=== PATIENT | female | born 1965 | race Caucasian/White ===

== ENCOUNTER → 2017-02-09 | Outpatient (CLI) | payer OTHER ==
--- NOTE | 2017-02-11 11:46 | MM ---
Reason for exam: screening (asymptomatic). Last mammogram was performed 1 year and 1 month ago. History: Patient is postmenopausal. Benign US RT VAD breast biopsy of the right breast, September 07, 2012. Benign left mammotome panel of the left breast, April 30, 2009. Benign US left guided VAD of the left breast, April 30, 2009. Took hormonal contraceptives for 10 years beginning at age 17. Took estrogen for 6 years beginning at age 40. Physical Findings: A clinical breast exam by your physician is recommended on an annual basis and results should be correlated with mammographic findings. MG 3D Screening Mammo W/Cad Bilateral CC and MLO view(s) were taken. Prior study comparison: January 06, 2016, bilateral MG 3d screening mammo w/cad. November 12, 2014, bilateral MG screening mammo w CAD. November 07, 2013, bilateral digital screening mammo w/CAD. The breast tissue is heterogeneously dense. This may lower the sensitivity of mammography. Previous mammotome biopsy within the right and left breast times 2. New small group of microcalcifications on the right 10 o'clock position middle depth. ASSESSMENT: Incomplete: need additional imaging evaluation, BI-RAD 0 RECOMMENDATION: Special view mammogram of the right breast. [facility] will attempt to contact patient to return for supplemental views.
== END | disposition home or self-care (01) ==
LOC: RADMAMWWP 07:35
PROVIDERS: ATTEND Internal Medicine
DX: Z12.31 Encounter for screening mammogram for malignant neoplasm of breast (principal)
CPT/HCPCS: 77063; G0202

== ENCOUNTER → 2017-02-15 | Outpatient (CLI) | payer OTHER ==
--- NOTE | 2017-02-15 08:29 | MM ---
Reason for exam: additional evaluation requested from abnormal screening. Last mammogram was performed less than 1 month ago. History: Patient is postmenopausal. Benign US RT VAD breast biopsy of the right breast, September 07, 2012. Benign left mammotome panel of the left breast, April 30, 2009. Benign US left guided VAD of the left breast, April 30, 2009. Took hormonal contraceptives for 10 years beginning at age 17. Took estrogen for 6 years beginning at age 40. Physical Findings: Nurse did not find any significant physical abnormalities on exam. MG 3D Work Up W/Cad RT ML with magnification, CC with magnification, and ML view(s) were taken of the right breast. Prior study comparison: February 09, 2017, bilateral MG 3d screening mammo w/cad. January 06, 2016, bilateral MG 3d screening mammo w/cad. November 12, 2014, bilateral MG screening mammo w CAD. The breast tissue is heterogeneously dense. This may lower the sensitivity of mammography. Very small group of microcalcifications upper outer quadrant middle depth appears to layer on the lateral view raising possibility of benign milk of calcium, These can be reassessed in 6 months. These results were verbally communicated with the patient and result sheet given to the patient on 02/15/17. ASSESSMENT: Probably benign, BI-RAD 3 RECOMMENDATION: Follow-up diagnostic mammogram of the right breast in 6 months.
== END ==
LOC: RADMAMWWP 07:30
PROVIDERS: ATTEND Internal Medicine
DX: R92.8 Other abnormal and inconclusive findings on diagnostic imaging of breast (principal)
CPT/HCPCS: G0206; G0279

== ENCOUNTER → 2018-08-19 | Outpatient (CLI) | payer OTHER ==
--- NOTE | 2018-08-23 09:13 | MM ---
Reason for exam: screening (asymptomatic). Last mammogram was performed 10 months ago. History: Patient is postmenopausal. Benign US RT VAD breast biopsy of the right breast, September 07, 2012. Benign left mammotome panel of the left breast, April 30, 2009. Benign US left guided VAD of the left breast, April 30, 2009. Took hormonal contraceptives for 10 years beginning at age 17. Took estrogen for 6 years beginning at age 40. Physical Findings: A clinical breast exam by your physician is recommended on an annual basis and results should be correlated with mammographic findings. MG 3D Screening Mammo W/Cad Bilateral CC and MLO view(s) were taken. Prior study comparison: October 18, 2017, right breast MG 3d diag mammo w/cad RT. February 15, 2017, right breast MG 3d work up w/cad RT. The breast tissue is heterogeneously dense. This may lower the sensitivity of mammography. Previous mammotome biopsy in the right and left breast. There is chronic nodularity in the left upper outer quadrant, better appreciated on 3D. No significant changes when compared with prior studies. ASSESSMENT: Negative, BI-RAD 1 RECOMMENDATION: Routine screening mammogram of both breasts in 1 year.
== END | disposition home or self-care (01) ==
LOC: RADMAMWWP 15:51
PROVIDERS: ATTEND Internal Medicine
DX: Z12.31 Encounter for screening mammogram for malignant neoplasm of breast (principal)
CPT/HCPCS: 77063; 77067

== ENCOUNTER → 2021-12-15 | Outpatient (CLI) | payer BC ==
--- NOTE | 2021-12-16 11:01 | MM ---
Reason for exam: screening (asymptomatic). Last mammogram was performed 3 years and 4 months ago. History: Patient is postmenopausal. Benign US RT VAD breast biopsy of the right breast, September 07, 2012. Benign left mammotome panel of the left breast, April 30, 2009. Benign US left guided VAD of the left breast, April 30, 2009. Took hormonal contraceptives for 10 years beginning at age 17. Took estrogen for 6 years beginning at age 40. Physical Findings: A clinical breast exam by your physician is recommended on an annual basis and results should be correlated with mammographic findings. MG 3D Screening Mammo W/Cad Bilateral CC, MLO, and XCCL view(s) were taken. Prior study comparison: August 19, 2018, bilateral MG 3d screening mammo w/cad. October 18, 2017, right breast MG 3d diag mammo w/cad RT. The breast tissue is heterogeneously dense. This may lower the sensitivity of mammography. No significant changes when compared with prior studies. ASSESSMENT: Benign, BI-RAD 2 RECOMMENDATION: Routine screening mammogram of both breasts in 1 year.
== END | disposition home or self-care (01) ==
LOC: RADMAMWWP 14:36
PROVIDERS: ATTEND Family Medicine
DX: Z12.31 Encounter for screening mammogram for malignant neoplasm of breast (principal); Z78.0 Asymptomatic menopausal state
CPT/HCPCS: 77063; 77067

== ENCOUNTER 2022-09-16 10:38 | Day surgery (SDC) | payer OTHER ==
[~2022-09-16 10:38] MED LIST: LACTATED RINGERS 1,000 ML IV SCH; LIDOCAINE 1% (10MG/ML) FOR IV START INTRADERMA PRN; ONDANSETRON 4 MG/2 ML VIAL IVP PRN
[2022-09-16 12:20] VITALS: TEMP 98.8
[2022-09-16] MEDS ORDERED: PROPOFOL 10 MG/ML 20 ML VIAL IV ONE (12:59)
[2022-09-16] MEDS ORDERED: LIDOCAINE 2% INJ 20 MG/ML (2 ML VIAL) ONE (12:59)
--- NOTE | 2022-09-16 13:15 | P.PCN ---
Date of Procedure: 09/16/22 Procedure(s) Performed: BRIEF HISTORY: Patient is a 57-year-old pleasant female scheduled for an elective colonoscopy as a part of screening for colon rectal neoplasia. PROCEDURE PERFORMED: Colonoscopy. PREOPERATIVE DIAGNOSIS: Screening for colon cancer. IV sedation per Anesthesia. PROCEDURE: After informed consent was obtained, the patient, was brought into the endoscopy unit. IV sedation was administered by Anesthesia under continuous monitoring. Digital rectal examination was normal. Initially the Olympus CF-160 flexible video colonoscope was then inserted in the rectum, gradually advanced into the cecum without any difficulty. Careful examination was performed as the scope was gradually being withdrawn. Ileocecal valve and the appendiceal orifice were visualized and appeared normal. Prep was good.. Mucosa of the cecum, ascending colon, transverse colon, descending colon, sigmoid colon, and rectum appeared normal. Retroflexion was performed in the rectum and no lesions were seen. The patient tolerated the procedure well. IMPRESSION: Normal-appearing colon from rectum to cecum no evidence of colorectal neoplasia . RECOMMENDATIONS: Findings of this examination were discussed with the patient as well as her family. She was advised to have a repeat screening colonoscopy in 10 years.
[2022-09-16 13:20] VITALS: RESP 16
[2022-09-16 13:38] VITALS: BP 128/84; PULSE 61
== END 2022-09-16 13:56 | disposition home or self-care (01) ==
LOC: ORWHC2ENDO 10:38
PROVIDERS: ATTEND Internal Medicine Gastroenterology
DX: Z12.11 Encounter for screening for malignant neoplasm of colon (principal); I10 Essential (primary) hypertension; E78.5 Hyperlipidemia, unspecified; E03.9 Hypothyroidism, unspecified; Z79.890 Hormone replacement therapy; Z90.710 Acquired absence of both cervix and uterus; Z90.49 Acquired absence of other specified parts of digestive tract
CPT/HCPCS: 45378; J2704; J2001

== ENCOUNTER → 2023-03-17 | Outpatient (CLI) | payer BC ==
--- NOTE | 2023-03-18 08:30 | MM ---
Reason for Exam: Screening (asymptomatic). Last mammogram was performed 1 year(s) and 3 month(s) ago. Patient History: Menarche at age 13. First Full-Term at age 28. Left ovary removed at age 43. Right ovary removed at age 43. Hysterectomy at age 43. Postmenopausal. Patient has history of breast feeding. Estrogen, starting at age 40 for 6 years. Hormonal Contraceptives for 10 years from age 17 until age 27. 09/07/2012, Benign Core Biopsy on the right side. 04/30/2009, Benign Core Biopsy on the left side. 04/30/2009, Benign Core Biopsy on the left side. Risk Values: Lina 5 year model risk: 2.1%. NCI Lifetime model risk: 12.8%. Prior Study Comparison: 01/06/2016 Bilateral Screening Mammogram, [facility]. 02/09/2017 Bilateral Screening Mammogram, [facility]. 02/15/2017 Right Diagnostic Mammogram, [facility]. 10/18/2017 Right Diagnostic Mammogram, [facility]. 08/19/2018 Bilateral Screening Mammogram, [facility]. 12/15/2021 Bilateral Screening Mammogram, [facility]. Tissue Density: The breast tissue is heterogeneously dense. This may lower the sensitivity of mammography. Findings: Analyzed By CAD. Bilateral biopsy clips are redemonstrated. There are scattered and loosely grouped tiny benign-appearing round calcifications throughout the bilateral breasts redemonstrated. Benign-appearing bilateral axillary lymph nodes are again seen. Stable small circumscribed round masses in the left breast on background dense tissue. There is no suspicious new group of microcalcifications or new suspicious mass in either breast. Overall Assessment: Benign, BI-RAD 2 Management: Screening Mammogram of both breasts in 1 year. Some advise bilateral breast ultrasound surveillance in patients with background dense tissue. Patient should continue monthly self-breast exams. A clinical breast exam by your physician is recommended on an annual basis. This exam should not preclude additional follow-up of suspicious palpable abnormalities. Note on Lina scores and lifetime risk: 1. A Lina score greater than 3% is considered moderate risk. If this is the case, consider specialist referral to assess eligibility for a risk reducing agent. 2. If overall lifetime risk for the development of breast cancer is 20% or higher, the patient may qualify for future screening with alternating mammogram and breast MRI. Electronically signed and approved by: Geoff Doe M.D.
== END | disposition home or self-care (01) ==
LOC: RADMAMWWP 06:46
PROVIDERS: ATTEND Family Medicine
DX: Z12.31 Encounter for screening mammogram for malignant neoplasm of breast (principal); Z78.0 Asymptomatic menopausal state
CPT/HCPCS: 77063; 77067

== ENCOUNTER → 2025-01-11 | Outpatient (CLI) | payer BC ==
--- NOTE | 2025-01-12 07:54 | MM ---
Reason for Exam: Screening (asymptomatic). Last mammogram was performed 1 year(s) and 10 month(s) ago. Patient History: Menarche at age 13. First Full-Term at age 28. Left ovary removed at age 43. Right ovary removed at age 43. Hysterectomy at age 43. Postmenopausal. Patient has history of breast feeding. Estrogen, starting at age 40 for 6 years. Hormonal Contraceptives for 10 years from age 17 until age 27. 09/07/2012, Benign Core Biopsy on the right side. 04/30/2009, Benign Core Biopsy on the left side. 04/30/2009, Benign Core Biopsy on the left side. Risk Values: Lina 5 year model risk: 2.3%. NCI Lifetime model risk: 12.2%. Prior Study Comparison: 08/19/2018 Bilateral Screening Mammogram, [facility]. 12/15/2021 Bilateral Screening Mammogram, [facility]. 03/17/2023 Bilateral MG 3D screening mammo w/cad, [facility]. Tissue Density: The breasts are heterogeneously dense, which may obscure small masses. Findings: Analyzed By CAD. 1 microclip right breast and 2 microclip left breast. Benign oil cyst and some regional punctate calcifications remain unchanged. Areas of asymmetric density are also unchanged. There is no suspicious group of microcalcifications or new suspicious mass in either breast. Overall Assessment: Benign, BI-RAD 2 Management: Screening Mammogram of both breasts in 1 year. Patient should continue monthly self-breast exams. A clinical breast exam by your physician is recommended on an annual basis. This exam should not preclude additional follow-up of suspicious palpable abnormalities. Note on Lina scores and lifetime risk: 1. A Lina score greater than 3% is considered moderate risk. If this is the case, consider specialist referral to assess eligibility for a risk reducing agent. 2. If overall lifetime risk for the development of breast cancer is 20% or higher, the patient may qualify for future screening with alternating mammogram and breast MRI. [facility], , 01/12/2025 7:52 AM. Electronically signed and approved by: Chago Hdez M.D. Radiologist
--- NOTE | 2025-01-12 08:22 | BD ---
EXAMINATION TYPE: Axial Bone Density DATE OF EXAM: 01/11/2025 CLINICAL HISTORY: 59 years old Female. ICD-10 CODE: Z78.0 POST MENOPAUSAL , Additional History: Height: 66 Weight: 207 FRAX RISK QUESTIONS: Alcohol (3 or more units per day): no Family History (Parent hip fracture): yes Glucocorticoids (More than 3mos): no (Ex: prednisone, prednisolone, methylprednisolone, dexamethasone, and hydrocortisone). History of Fracture in Adulthood: no Secondary Osteoporosis: 1. Type 1 Diabetes: no 2. Hyperthyroidism: no 3. Menopause before 45: yes 4. Malnutrition: no 5. Chronic liver disease: no Rheumatoid Arthritis: no Current Tobacco Use: no RISK FACTORS HISTORY OF: Surgery to Spine/Hip(right/left)/Wrist (right/left): no When: MEDICATIONS: Thyroid Medications: synthroid How Lon years EXAM MEASUREMENTS: Bone mineral densitometry was performed using the [employer] System. Bone mineral density as measured about the Lumbar spine is: ----- L1-L4(G/cm2): 1.012 T Score Values are as follows: ----- L1: -1.0 ----- L2: -1.6 ----- L3: -1.6 ----- L4: -1.5 ----- L1-L4: -1.4 Z Score Values are as follows: ----- L1: -0.8 ----- L2: -1.4 ----- L3: -1.4 ----- L4: -1.4 ----- L1-L4: -1.2 Bone mineral density has: decreased -13.4 % since study of: 09.01.2006 Bone mineral density about the R hip (g/cm2): 0.897 Bone mineral density about the L hip (g/cm2): 0.883 T Score values are as follows: -----R Neck: -1.8 -----L Neck: -1.6 -----R Total: -1.0 -----L Total: -1.0 Z Score values are as follows: -----R Neck: -1.2 -----L Neck: -1.0 -----R Total: -0.8 -----L Total: -0.8 Bone mineral density has: decreased -11.1 % since study of: 09.01.2006 FRAX%s: The graph provided illustrates a 16.0% chance for a major osteoporotic fx and a 0.9% chance f or the hips probability for fx in 10 years time. IMPRESSION: Osteopenia (T Score between -2.5 and -1). There is slightly increased risk of fracture and the patient may be considered for treatment. Re-Screen 2-5 years. NOTE: T-SCORE=SD OF THE YOUNG ADULT MEAN. [facility], , 01/12/2025 8:19 AM
== END | disposition home or self-care (01) ==
LOC: RADMAMWWP 14:57
PROVIDERS: ATTEND Family Medicine
DX: Z12.31 Encounter for screening mammogram for malignant neoplasm of breast (principal); R92.333 Mammographic heterogeneous density, bilateral breasts; M85.89 Other specified disorders of bone density and structure, multiple sites; Z78.0 Asymptomatic menopausal state; Z92.0 Personal history of contraception
CPT/HCPCS: 77063; 77067; 77080